=== PATIENT | male | born 1935 | race Caucasian/White ===

== ENCOUNTER 2021-09-02 20:30 | Inpatient (IN) | payer OTHER ==
[2021-09-02 20:47] VITALS: BMI 30.2
[2021-09-02 22:22] LABS: BASO % 0.5 % (0-2.0); HEMATOCRIT 41.5 % (35.4-49); HEMOGLOBIN 13.7 GM/dL (11.7-16.9); LYMPH % 1.7 % (8-40); MCH 30.5 pg (25.7-33.7); MEAN CELL VOLUME 92.4 fl (80-96); MEAN PLT VOLUME 9.4 fl (7.5-11.1); MONO % 1.2 % (3.8-10.2); NEUT % 96.6 % (42.8-82.8); PLATELET COUNT 276 10^3/uL (134-434); RBC 4.49 M/mm3 (4.00-5.60); RDW 14.1 % (11.9-15.9); WHITE BLOOD COUNT 19.3 K/mm3 (4.0-10.0)
[2021-09-02 22:25] LABS: LACTIC ACID 3.8 mmol/L (0.4-2.0)
[2021-09-02 22:30] LABS: INR 1.09 (0.83-1.09); PROTHROMBIN TIME (PATIENT) 12.6 SEC (9.7-13.0)
[2021-09-02 22:33] LABS: ACTIVATED PTT 28.4 SECONDS (25.2-36.5)
[2021-09-02 22:44] LABS: CHLORIDE 96 mmol/L (98-107); SODIUM 137 mmol/L (136-145)
[2021-09-02 22:46] LABS: ALBUMIN 3.4 g/dl (3.4-5.0); BLOOD UREA NITROGEN 30.9 mg/dL (7-18); CO2 26 mmol/L (21-32); GLUCOSE,RANDOM 390 mg/dL (74-106)
[2021-09-02 22:49] LABS: CREATININE 2.2 mg/dL (0.55-1.3); SGOT/AST 21 U/L (15-37)
[2021-09-02] MEDS ORDERED: SODIUM CHLORIDE 1,000 ML IV STA (22:49)
[2021-09-02 22:52] LABS: ALK PHOS 70 U/L (45-117)
[2021-09-02 22:54] LABS: N-TERMINAL BNP 419.2 pg/ml (5-450)
[2021-09-02 23:00] LABS: ANION GAP 15 MMOL/L (8-16); SGPT/ALT 20 U/L (13-61)
[2021-09-02 23:04] LABS: ANISOCYTOSIS 1+; MACROCYTOSIS 0
[2021-09-02 23:08] LABS: PLATELET ESTIMATE ADEQUATE
[2021-09-02] MEDS ORDERED: POTASSIUM CHLORIDE ORAL LIQUID 20 MEQ/15 ML PO ONE (23:24)
[2021-09-02] MEDS ORDERED: KCL 10 MEQ IVPB 10 MEQ/100 ML INFUS.BAG IVPB SCH (23:30)
[2021-09-02] MEDS ORDERED: POTASSIUM CHLORIDE ORAL LIQUID 20 MEQ/15 ML ONE (23:40)
[2021-09-02] MEDS ORDERED: KCL 10 MEQ IVPB 10 MEQ/100 ML INFUS.BAG IVPB ONE (23:41)
[2021-09-03 04:20] LABS: LACTIC ACID 3.6 mmol/L (0.4-2.0)
[2021-09-03] MEDS ORDERED: CEFEPIME HCL/D5W 1 GM/50 ML BAG IVPB ONE (04:37)
[2021-09-03] MEDS ORDERED: VANCOMYCIN 1 GM in D5W (PRE-DOCKED) 1,000 MG/250 ML IVPB ONE (04:37)
[2021-09-03] MEDS ORDERED: SODIUM CHLORIDE 2,790 ML IV ONE (04:38)
[2021-09-03] MEDS ORDERED: CEFEPIME 1 GM/100 ML BAG IVPB ONE (04:48)
[2021-09-03] MEDS ORDERED: VANCOMYCIN 1 GRAM (PRE-DOCKED) 1,000 MG/250 ML BAG IVPB ONE (04:48)
[2021-09-03 06:06] LABS: EPI CELLS 12 /uL (0-25.1); HYALINE CASTS 5 /uL (0-3.1); PH,URINE 5.5 (5.0-8.0); URINE APPEARANCE CLOUDY; URINE BACTERIA >9,000 /uL (0-1359); URINE BILIRUBIN NEGATIVE (NEGATIVE); URINE COLOR YELLOW; URINE GLUCOSE (UA) 3+ (NEGATIVE); URINE KETONE TRACE (NEGATIVE); URINE LEUK ESTERASE 2+ (NEGATIVE); URINE NITRITE NEGATIVE (NEGATIVE); URINE PROTEIN TRACE (NEGATIVE); URINE RBC 241 /uL (0-23.9); URINE UROBILINOGEN 0.2 mg/dL (0.2-1.0); URINE WBC 495 /uL (0-25.8)
[2021-09-03 07:13] LABS: HEMOGLOBIN 12.2 GM/dL (11.7-16.9); MCH 30.7 pg (25.7-33.7); MEAN CELL VOLUME 92.8 fl (80-96); PLATELET COUNT 244 10^3/uL (134-434); RBC 3.99 M/mm3 (4.00-5.60); RDW 14.3 % (11.9-15.9); WHITE BLOOD COUNT 14.9 K/mm3 (4.0-10.0)
[2021-09-03 07:41] LABS: ALBUMIN 3.2 g/dl (3.4-5.0); CALCIUM 8.2 mg/dL (8.5-10.1)
[2021-09-03 07:42] LABS: BLOOD UREA NITROGEN 30.7 mg/dL (7-18); MAGNESIUM 1.9 mg/dL (1.8-2.4)
[2021-09-03 07:46] LABS: BILIRUBIN,TOTAL 0.8 mg/dL (0.2-1); TOT PROT 6.6 g/dl (6.4-8.2)
[2021-09-03 07:53] LABS: LACTIC ACID 7.1 mmol/L (0.4-2.0)
[2021-09-03] MEDS ORDERED: LEVOTHYROXINE NA 50 MCG TABLET (FP) ONE (08:24)
[2021-09-03] MEDS: SODIUM CHLORIDE 1,000 ML with POTASSIUM CHLORIDE 20 MEQ IV SCH (08:34)
[2021-09-03] MEDS: INSULIN SLIDING SCALE (NOVOLOG) 1 VIAL SQ SCH ×4 (08:34→21:23)
[2021-09-03 08:55] LABS: ANISOCYTOSIS 0; HELMET CELLS 0; HOWELL-JOLLY BODIES 0; MACROCYTOSIS 0; OVALOCYTE 0; ROULEAU 0; SICKELED CELLS 0; TARGET CELLS 0; TEAR DROP CELLS 0; TOXIC GRANULATION 0
[2021-09-03] MEDS ORDERED: LEVOTHYROXINE NA 50 MCG TABLET (FP) PO SCH (10:00)
[2021-09-03] MEDS ORDERED: HEPARIN NA (PORCINE) 5,000 UNITS/ML 1ML VIAL ONE (11:48)
[2021-09-03] MEDS: HEPARIN NA (PORCINE) 5,000 UNITS/ML 1ML VIAL SQ SCH ×2 (11:53→21:23)
[2021-09-03] MEDS: LORazepam 2 MG/ML SDV VIAL IM PRN ×2 (16:07→22:50)
[2021-09-03 17:02] LABS: LACTIC ACID 2.4 mmol/L (0.4-2.0)
[2021-09-03] MEDS ORDERED: CEFEPIME HCL 1 GM VIAL (RESTRICTED TO ID) ONE (17:26)
[2021-09-03] MEDS ORDERED: DEXTROSE 5%-WATER 100 ML IVPB ONE (17:26)
[2021-09-03] MEDS: CEFEPIME 1 GM in DEXTROSE 5%-WATER 1 GM/100 ML BAG IVPB SCH (17:50)
[2021-09-04] MEDS: SODIUM CHLORIDE 1,000 ML with POTASSIUM CHLORIDE 20 MEQ IV SCH (02:00)
[2021-09-04] MEDS: CEFEPIME 1 GM in DEXTROSE 5%-WATER 1 GM/100 ML BAG IVPB SCH ×2 (05:34→17:50)
[2021-09-04] MEDS: INSULIN SLIDING SCALE (NOVOLOG) 1 VIAL SQ SCH ×3 (06:43→17:50)
[2021-09-04] MEDS: LEVOTHYROXINE NA 50 MCG TABLET (FP) PO SCH (06:43)
[2021-09-04] MEDS: HEPARIN NA (PORCINE) 5,000 UNITS/ML 1ML VIAL SQ SCH ×2 (09:31→21:28)
[2021-09-04] MEDS ORDERED: CEFEPIME HCL 1 GM VIAL (RESTRICTED TO ID) ONE (16:49)
[2021-09-04] MEDS ORDERED: DEXTROSE 5%-WATER 100 ML IVPB ONE (16:50)
[2021-09-04] MEDS ORDERED: LORazepam 2 MG/ML SDV VIAL IVPUSH ONE (21:15)
[2021-09-05] MEDS: INSULIN SLIDING SCALE (NOVOLOG) 1 VIAL SQ SCH ×5 (02:50→22:58)
[2021-09-05] MEDS: LORazepam 2 MG/ML SDV VIAL IM PRN ×2 (03:00→22:57)
[2021-09-05] MEDS ORDERED: DEXTROSE 5%-WATER 100 ML IVPB ONE ×2 (03:11→17:15)
[2021-09-05] MEDS ORDERED: CEFEPIME HCL 1 GM VIAL (RESTRICTED TO ID) ONE ×2 (03:11→17:15)
[2021-09-05] MEDS: CEFEPIME 1 GM in DEXTROSE 5%-WATER 1 GM/100 ML BAG IVPB SCH ×2 (07:06→17:33)
[2021-09-05] MEDS: LEVOTHYROXINE NA 50 MCG TABLET (FP) PO SCH (09:30)
[2021-09-05] MEDS: HEPARIN NA (PORCINE) 5,000 UNITS/ML 1ML VIAL SQ SCH ×2 (09:30→22:59)
[2021-09-05] MEDS: SODIUM CHLORIDE 1,000 ML with POTASSIUM CHLORIDE 20 MEQ IV SCH ×2 (09:30→11:00)
[2021-09-05 12:23] LABS: BASO % 0.7 % (0-2.0); EOS % 3.2 % (0-4.5); HEMATOCRIT 36.8 % (35.4-49); HEMOGLOBIN 12.2 GM/dL (11.7-16.9); MCH 30.3 pg (25.7-33.7); MEAN CELL VOLUME 91.8 fl (80-96); MEAN PLT VOLUME 8.5 fl (7.5-11.1); MONO % 7.7 % (3.8-10.2); NEUT % 69.4 % (42.8-82.8); PLATELET COUNT 215 10^3/uL (134-434); RBC 4.01 M/mm3 (4.00-5.60); RDW 14.5 % (11.9-15.9); WHITE BLOOD COUNT 5.9 K/mm3 (4.0-10.0)
[2021-09-05 12:49] LABS: CALCIUM 8.1 mg/dL (8.5-10.1)
[2021-09-05 12:50] LABS: ALBUMIN 2.5 g/dl (3.4-5.0)
[2021-09-05 12:53] LABS: CREATININE 1.1 mg/dL (0.55-1.3)
[2021-09-05 12:54] LABS: BILIRUBIN,TOTAL 0.6 mg/dL (0.2-1); TOT PROT 5.8 g/dl (6.4-8.2)
[2021-09-05] MEDS: POTASSIUM CHLORIDE 10 MEQ in SODIUM CHLORIDE 0.45% 1,000 ML IVPB SCH (16:32)
[2021-09-05] MEDS: MEMANTINE HCL 10 MG TABLET (FP) PO SCH (22:58)
[2021-09-06] MEDS ORDERED: CEFEPIME HCL 1 GM VIAL (RESTRICTED TO ID) ONE (03:18)
[2021-09-06] MEDS ORDERED: DEXTROSE 5%-WATER 100 ML IVPB ONE (03:18)
[2021-09-06] MEDS: CEFEPIME 1 GM in DEXTROSE 5%-WATER 1 GM/100 ML BAG IVPB SCH (06:36)
[2021-09-06] MEDS: INSULIN SLIDING SCALE (NOVOLOG) 1 VIAL SQ SCH ×4 (06:39→23:30)
[2021-09-06] MEDS: LEVOTHYROXINE NA 50 MCG TABLET (FP) PO SCH (06:40)
[2021-09-06] MEDS: MEMANTINE HCL 10 MG TABLET (FP) PO SCH ×2 (10:56→23:15)
[2021-09-06] MEDS: HEPARIN NA (PORCINE) 5,000 UNITS/ML 1ML VIAL SQ SCH ×2 (10:56→23:15)
[2021-09-06] MEDS: POTASSIUM CHLORIDE 10 MEQ in SODIUM CHLORIDE 0.45% 1,000 ML IVPB SCH (11:48)
[2021-09-06] MEDS: LISINOPRIL 5 MG TABLET PO SCH (16:23)
[2021-09-06] MEDS: CEPHALEXIN MONOHYDRATE 500 MG CAPSULE (UD) PO SCH ×2 (16:23→23:15)
[2021-09-06] MEDS: LORazepam 2 MG/ML SDV VIAL IM PRN ×2 (16:24→23:16)
[2021-09-07] MEDS: CEPHALEXIN MONOHYDRATE 500 MG CAPSULE (UD) PO SCH ×3 (05:53→22:48)
[2021-09-07] MEDS: LEVOTHYROXINE NA 50 MCG TABLET (FP) PO SCH (06:01)
[2021-09-07] MEDS: INSULIN SLIDING SCALE (NOVOLOG) 1 VIAL SQ SCH ×4 (06:01→22:49)
[2021-09-07] MEDS ORDERED: INSULIN (NOVOLOG) ASPART 100 UNITS/ML 10ML VIAL ONE ×2 (08:01→11:15)
[2021-09-07 08:37] LABS: BASO % 0.8 % (0-2.0); EOS % 3.6 % (0-4.5); HEMATOCRIT 33.9 % (35.4-49); HEMOGLOBIN 11.5 GM/dL (11.7-16.9); LYMPH % 24.8 % (8-40); MCH 30.9 pg (25.7-33.7); MCHC 33.9 g/dl (32.0-35.9); MEAN CELL VOLUME 91.2 fl (80-96); MEAN PLT VOLUME 8.4 fl (7.5-11.1); MONO % 7.9 % (3.8-10.2); NEUT % 62.9 % (42.8-82.8); PLATELET COUNT 237 10^3/uL (134-434); RBC 3.71 M/mm3 (4.00-5.60); WHITE BLOOD COUNT 6.1 K/mm3 (4.0-10.0)
[2021-09-07] MEDS: MEMANTINE HCL 10 MG TABLET (FP) PO SCH ×2 (10:02→22:48)
[2021-09-07] MEDS: LISINOPRIL 5 MG TABLET PO SCH (10:02)
[2021-09-07 10:05] LABS: ALBUMIN 2.4 g/dl (3.4-5.0); BLOOD UREA NITROGEN 14.7 mg/dL (7-18); CALCIUM 7.9 mg/dL (8.5-10.1)
[2021-09-07] MEDS: HEPARIN NA (PORCINE) 5,000 UNITS/ML 1ML VIAL SQ SCH ×2 (10:06→22:48)
[2021-09-07 10:10] LABS: BILIRUBIN,TOTAL 0.6 mg/dL (0.2-1); TOT PROT 5.6 g/dl (6.4-8.2)
[2021-09-07] MEDS: LORazepam 2 MG/ML SDV VIAL IM PRN (11:30)
[2021-09-07] MEDS ORDERED: POTASSIUM CHLORIDE TABS 10 MEQ TABLET.ER (FP) PO ONE (11:30)
[2021-09-08] MEDS: INSULIN SLIDING SCALE (NOVOLOG) 1 VIAL SQ SCH ×4 (07:02→22:00)
[2021-09-08] MEDS: CEPHALEXIN MONOHYDRATE 500 MG CAPSULE (UD) PO SCH ×3 (07:02→21:50)
[2021-09-08] MEDS: LEVOTHYROXINE NA 50 MCG TABLET (FP) PO SCH (07:02)
[2021-09-08] MEDS: LISINOPRIL 5 MG TABLET PO SCH ×3 (10:21→15:20)
[2021-09-08] MEDS: MEMANTINE HCL 10 MG TABLET (FP) PO SCH ×4 (10:21→21:50)
[2021-09-08] MEDS: HEPARIN NA (PORCINE) 5,000 UNITS/ML 1ML VIAL SQ SCH ×2 (10:22→21:50)
[2021-09-09] MEDS: LEVOTHYROXINE NA 50 MCG TABLET (FP) PO SCH (06:07)
[2021-09-09] MEDS: CEPHALEXIN MONOHYDRATE 500 MG CAPSULE (UD) PO SCH ×3 (06:07→23:04)
[2021-09-09] MEDS: INSULIN SLIDING SCALE (NOVOLOG) 1 VIAL SQ SCH ×5 (06:14→23:23)
[2021-09-09] MEDS: LORazepam 2 MG/ML SDV VIAL IM PRN ×2 (06:19→13:04)
[2021-09-09 09:21] LABS: CALCIUM 8.3 mg/dL (8.5-10.1)
[2021-09-09 09:22] LABS: ALBUMIN 2.5 g/dl (3.4-5.0); BLOOD UREA NITROGEN 17.1 mg/dL (7-18); MAGNESIUM 1.9 mg/dL (1.8-2.4)
[2021-09-09 09:25] LABS: BILIRUBIN,TOTAL 0.8 mg/dL (0.2-1); CREATININE 1.2 mg/dL (0.55-1.3)
[2021-09-09 09:27] LABS: TOT PROT 6.1 g/dl (6.4-8.2)
[2021-09-09] MEDS: LISINOPRIL 5 MG TABLET PO SCH (10:21)
[2021-09-09] MEDS: MEMANTINE HCL 10 MG TABLET (FP) PO SCH ×2 (10:21→23:04)
[2021-09-09] MEDS: HEPARIN NA (PORCINE) 5,000 UNITS/ML 1ML VIAL SQ SCH ×2 (10:22→23:04)
[2021-09-10] MEDS: LEVOTHYROXINE NA 50 MCG TABLET (FP) PO SCH (06:28)
[2021-09-10] MEDS: CEPHALEXIN MONOHYDRATE 500 MG CAPSULE (UD) PO SCH ×3 (06:28→21:33)
[2021-09-10] MEDS: INSULIN SLIDING SCALE (NOVOLOG) 1 VIAL SQ SCH ×4 (06:29→21:45)
[2021-09-10] MEDS: LISINOPRIL 5 MG TABLET PO SCH (09:54)
[2021-09-10] MEDS: MEMANTINE HCL 10 MG TABLET (FP) PO SCH ×2 (09:54→21:33)
[2021-09-10] MEDS: HEPARIN NA (PORCINE) 5,000 UNITS/ML 1ML VIAL SQ SCH ×2 (09:55→21:33)
[2021-09-10] MEDS: MIRTAZAPINE 15 MG TABLET (FP) PO SCH (21:34)
[2021-09-11] MEDS: INSULIN SLIDING SCALE (NOVOLOG) 1 VIAL SQ SCH ×4 (06:26→22:51)
[2021-09-11] MEDS: CEPHALEXIN MONOHYDRATE 500 MG CAPSULE (UD) PO SCH ×3 (06:26→22:42)
[2021-09-11] MEDS: LEVOTHYROXINE NA 50 MCG TABLET (FP) PO SCH (06:26)
[2021-09-11] MEDS: LISINOPRIL 5 MG TABLET PO SCH (09:55)
[2021-09-11] MEDS: MEMANTINE HCL 10 MG TABLET (FP) PO SCH ×2 (09:56→22:43)
[2021-09-11] MEDS: HEPARIN NA (PORCINE) 5,000 UNITS/ML 1ML VIAL SQ SCH ×2 (09:56→22:42)
[2021-09-11] MEDS: LORazepam 2 MG/ML SDV VIAL IM PRN (22:36)
[2021-09-11] MEDS: MIRTAZAPINE 15 MG TABLET (FP) PO SCH (22:42)
[2021-09-12] MEDS: LEVOTHYROXINE NA 50 MCG TABLET (FP) PO SCH (06:19)
[2021-09-12] MEDS: INSULIN SLIDING SCALE (NOVOLOG) 1 VIAL SQ SCH ×4 (06:19→23:09)
[2021-09-12] MEDS: CEPHALEXIN MONOHYDRATE 500 MG CAPSULE (UD) PO SCH ×3 (06:19→23:05)
[2021-09-12] MEDS: HEPARIN NA (PORCINE) 5,000 UNITS/ML 1ML VIAL SQ SCH ×2 (09:06→23:08)
[2021-09-12] MEDS: MEMANTINE HCL 10 MG TABLET (FP) PO SCH ×2 (09:07→23:09)
[2021-09-12] MEDS: LISINOPRIL 5 MG TABLET PO SCH (09:08)
[2021-09-12 10:24] LABS: CALCIUM 8.7 mg/dL (8.5-10.1)
[2021-09-12 10:25] LABS: ALBUMIN 2.9 g/dl (3.4-5.0); BLOOD UREA NITROGEN 17.1 mg/dL (7-18)
[2021-09-12 10:29] LABS: BILIRUBIN,TOTAL 0.9 mg/dL (0.2-1); TOT PROT 6.8 g/dl (6.4-8.2)
[2021-09-12] MEDS ORDERED: ACETAMINOPHEN 325 MG TABLET (FP) PO PRN (14:44)
[2021-09-12] MEDS: MIRTAZAPINE 15 MG TABLET (FP) PO SCH (23:05)
[2021-09-13] MEDS: CEPHALEXIN MONOHYDRATE 500 MG CAPSULE (UD) PO SCH (06:39)
[2021-09-13] MEDS: INSULIN SLIDING SCALE (NOVOLOG) 1 VIAL SQ SCH ×4 (06:39→23:16)
[2021-09-13] MEDS: LEVOTHYROXINE NA 50 MCG TABLET (FP) PO SCH (06:39)
[2021-09-13 08:55] LABS: BASO % 1.1 % (0-2.0); EOS % 2.6 % (0-4.5); HEMATOCRIT 36.5 % (35.4-49); HEMOGLOBIN 12.1 GM/dL (11.7-16.9); MCH 30.5 pg (25.7-33.7); MCHC 33.2 g/dl (32.0-35.9); MONO % 5.8 % (3.8-10.2); NEUT % 64.5 % (42.8-82.8); PLATELET COUNT 314 10^3/uL (134-434); RBC 3.97 M/mm3 (4.00-5.60); RDW 14.5 % (11.9-15.9); WHITE BLOOD COUNT 7.1 K/mm3 (4.0-10.0)
[2021-09-13] MEDS: HEPARIN NA (PORCINE) 5,000 UNITS/ML 1ML VIAL SQ SCH ×2 (09:07→23:15)
[2021-09-13] MEDS: MEMANTINE HCL 10 MG TABLET (FP) PO SCH ×2 (09:08→23:15)
[2021-09-13] MEDS: LISINOPRIL 5 MG TABLET PO SCH (09:08)
[2021-09-13] MEDS: MIRTAZAPINE 15 MG TABLET (FP) PO SCH (23:15)
[2021-09-14] MEDS: INSULIN SLIDING SCALE (NOVOLOG) 1 VIAL SQ SCH ×4 (06:26→22:31)
[2021-09-14] MEDS: LEVOTHYROXINE NA 50 MCG TABLET (FP) PO SCH (06:34)
[2021-09-14] MEDS: MEMANTINE HCL 10 MG TABLET (FP) PO SCH ×2 (09:00→22:30)
[2021-09-14] MEDS: HEPARIN NA (PORCINE) 5,000 UNITS/ML 1ML VIAL SQ SCH ×2 (09:00→22:30)
[2021-09-14] MEDS: LISINOPRIL 5 MG TABLET PO SCH (09:00)
[2021-09-14] MEDS ORDERED: INSULIN (NOVOLOG) ASPART 100 UNITS/ML 10ML VIAL ONE (11:43)
[2021-09-14] MEDS: LORazepam 2 MG/ML SDV VIAL IM PRN ×2 (16:26→22:36)
[2021-09-14] MEDS: MIRTAZAPINE 15 MG TABLET (FP) PO SCH (22:30)
[2021-09-15] MEDS: LEVOTHYROXINE NA 50 MCG TABLET (FP) PO SCH (06:32)
[2021-09-15] MEDS: INSULIN SLIDING SCALE (NOVOLOG) 1 VIAL SQ SCH ×3 (06:33→17:03)
[2021-09-15] MEDS: MEMANTINE HCL 10 MG TABLET (FP) PO SCH (09:14)
[2021-09-15] MEDS: LISINOPRIL 5 MG TABLET PO SCH (09:14)
[2021-09-15] MEDS: HEPARIN NA (PORCINE) 5,000 UNITS/ML 1ML VIAL SQ SCH (09:14)
[2021-09-15 15:46] VITALS: BP 145/69; PULSE 82; TEMP 97.5
== END 2021-09-15 19:45 | DRG 682 ==
LOC: SUPCPDRO 20:30 → JER 20:30 → JERBED 20:55 → J4W 09-03 12:57 → J7W 09-06 17:59
PROVIDERS: ADMIT Specialist; ATTEND Specialist
DX: N17.9 Acute kidney failure, unspecified (principal); G93.41 Metabolic encephalopathy; N39.0 Urinary tract infection, site not specified; E87.2 Acidosis; E11.9 Type 2 diabetes mellitus without complications; E87.6 Hypokalemia; E03.9 Hypothyroidism, unspecified; E86.0 Dehydration; F03.90 Unspecified dementia, unspecified severity, without behavioral disturbance, psychotic disturbance, mood disturbance, and anxiety; B96.20 Unspecified Escherichia coli [E. coli] as the cause of diseases classified elsewhere; I25.119 Atherosclerotic heart disease of native coronary artery with unspecified angina pectoris
CPT/HCPCS: 36415; 70450-TC; 71250-TC; 72125-TC; 74176-TC; 80053; 81003; 82607; 82962; 83605; 83735; 83880; 84132; 84443; 84484; 85025; 85610; 85730; 87040; 87086; 87186; 93005; 93010; 97116-GP; 97162-GP; 99285-25; C9803-CS; J1644; U0003; U0005

== ENCOUNTER 2022-05-29 13:13 | Observation (INO) | payer OTHER ==
[2022-05-29] MEDS ORDERED: ACETAMINOPHEN 1000 MG/100 ML BAG IVPB ONE (15:29)
[2022-05-29] MEDS ORDERED: ACETAMINOPHEN INJECTION 100 ML IVPB ONE (15:32)
[2022-05-29 15:53] LABS: EOS % 3.4 % (0-4.5); HEMATOCRIT 42.3 % (35.4-49); HEMOGLOBIN 14.5 GM/dL (11.7-16.9); LYMPH % 18.7 % (8-40); MCHC 34.2 g/dl (32.0-35.9); MEAN CELL VOLUME 93.6 fl (80-96); MEAN PLT VOLUME 8.7 fl (7.5-11.1); MONO % 7.1 % (3.8-10.2); NEUT % 69.8 % (42.8-82.8); PLATELET COUNT 256 10^3/uL (134-434); RBC 4.52 M/mm3 (4.00-5.60); RDW 13.6 % (11.9-15.9); WHITE BLOOD COUNT 8.4 K/mm3 (4.0-10.0)
[2022-05-29 15:55] LABS: PH,URINE 6.5 (5.0-8.0); URINE APPEARANCE CLEAR; URINE BILIRUBIN NEGATIVE (NEGATIVE); URINE COLOR YELLOW; URINE GLUCOSE (UA) NEGATIVE (NEGATIVE); URINE KETONE NEGATIVE (NEGATIVE); URINE LEUK ESTERASE NEGATIVE (NEGATIVE); URINE NITRITE NEGATIVE (NEGATIVE); URINE PROTEIN NEGATIVE (NEGATIVE); URINE UROBILINOGEN 0.2 mg/dL (0.2-1.0)
[2022-05-29 16:45] LABS: CALCIUM 8.3 mg/dL (8.5-10.1)
[2022-05-29 16:46] LABS: ALBUMIN 3.4 g/dl (3.4-5.0); BLOOD UREA NITROGEN 31.8 mg/dL (7-18)
[2022-05-29 16:48] LABS: CREATININE 1.3 mg/dL (0.55-1.3)
[2022-05-29 16:50] LABS: BILIRUBIN,TOTAL 0.4 mg/dL (0.2-1)
[2022-05-29 17:13] LABS: TOT PROT 7.1 g/dl (6.4-8.2)
[2022-05-29] MEDS: ENOXAPARIN NA (PORCINE) 30 MG/0.3 ML DISP.SYRIN SQ SCH (21:20)
[2022-05-29] MEDS: SODIUM CHLORIDE 1,000 ML IV SCH (21:25)
[2022-05-29] MEDS ORDERED: ENOXAPARIN NA (PORCINE) 40 MG/0.4 ML DISP.SYRIN SQ SCH (22:00)
[2022-05-29] MEDS ORDERED: MIRTAZAPINE 15 MG TABLET (FP) ONE (22:46)
[2022-05-29] MEDS: MEMANTINE HCL 10 MG TABLET (FP) PO SCH (23:05)
[2022-05-29] MEDS: MIRTAZAPINE 15 MG TABLET (FP) PO SCH (23:05)
[2022-05-30] MEDS: LEVOTHYROXINE NA 50 MCG TABLET (FP) PO SCH (06:39)
[2022-05-30 08:33] LABS: HEMATOCRIT 44.6 % (35.4-49); HEMOGLOBIN 14.6 GM/dL (11.7-16.9); MCH 30.9 pg (25.7-33.7); MCHC 32.6 g/dl (32.0-35.9); MEAN CELL VOLUME 94.7 fl (80-96); PLATELET COUNT 285 10^3/uL (134-434); RBC 4.71 M/mm3 (4.00-5.60); RDW 13.9 % (11.9-15.9); WHITE BLOOD COUNT 8.8 K/mm3 (4.0-10.0)
[2022-05-30 08:45] LABS: BLOOD UREA NITROGEN 29.2 mg/dL (7-18); CALCIUM 8.8 mg/dL (8.5-10.1); MAGNESIUM 2.2 mg/dL (1.8-2.4)
[2022-05-30 08:48] LABS: CREATININE 1.4 mg/dL (0.55-1.3)
[2022-05-30] MEDS: ENOXAPARIN NA (PORCINE) 30 MG/0.3 ML DISP.SYRIN SQ SCH (10:24)
[2022-05-30] MEDS: MEMANTINE HCL 10 MG TABLET (FP) PO SCH ×2 (10:24→21:36)
[2022-05-30] MEDS: LISINOPRIL 5 MG TABLET PO SCH (10:24)
[2022-05-30] MEDS: SODIUM CHLORIDE 1,000 ML IV SCH (21:35)
[2022-05-30] MEDS: MIRTAZAPINE 15 MG TABLET (FP) PO SCH (21:36)
[2022-05-31] MEDS: LEVOTHYROXINE NA 50 MCG TABLET (FP) PO SCH (06:10)
[2022-05-31 08:15] LABS: EOS % 4.2 % (0-4.5); HEMATOCRIT 38.7 % (35.4-49); LYMPH % 32.8 % (8-40); MCH 31.2 pg (25.7-33.7); MCHC 33.5 g/dl (32.0-35.9); MEAN CELL VOLUME 93.1 fl (80-96); MEAN PLT VOLUME 8.7 fl (7.5-11.1); MONO % 8.1 % (3.8-10.2); NEUT % 53.9 % (42.8-82.8); PLATELET COUNT 217 10^3/uL (134-434); RBC 4.16 M/mm3 (4.00-5.60); RDW 13.6 % (11.9-15.9)
[2022-05-31 08:22] LABS: CALCIUM 7.7 mg/dL (8.5-10.1)
[2022-05-31 08:23] LABS: BLOOD UREA NITROGEN 26.6 mg/dL (7-18)
[2022-05-31 08:26] LABS: CREATININE 1.2 mg/dL (0.55-1.3)
[2022-05-31 08:27] LABS: BILIRUBIN,TOTAL 0.5 mg/dL (0.2-1)
[2022-05-31] MEDS: LISINOPRIL 5 MG TABLET PO SCH (09:39)
[2022-05-31] MEDS: MEMANTINE HCL 10 MG TABLET (FP) PO SCH ×2 (09:40→21:28)
[2022-05-31] MEDS: ENOXAPARIN NA (PORCINE) 30 MG/0.3 ML DISP.SYRIN SQ SCH (09:40)
[2022-05-31] MEDS: SODIUM CHLORIDE 1,000 ML IV SCH (15:48)
[2022-05-31] MEDS: MIRTAZAPINE 15 MG TABLET (FP) PO SCH (21:27)
[2022-06-01] MEDS: SODIUM CHLORIDE 1,000 ML IV SCH ×2 (06:37→23:00)
[2022-06-01] MEDS: LEVOTHYROXINE NA 50 MCG TABLET (FP) PO SCH (06:37)
[2022-06-01] MEDS: MEMANTINE HCL 10 MG TABLET (FP) PO SCH ×2 (12:14→22:55)
[2022-06-01] MEDS: LISINOPRIL 5 MG TABLET PO SCH (12:17)
[2022-06-01] MEDS: ENOXAPARIN NA (PORCINE) 30 MG/0.3 ML DISP.SYRIN SQ SCH (12:19)
[2022-06-01 20:56] VITALS: BMI 27.4
[2022-06-01] MEDS: MIRTAZAPINE 15 MG TABLET (FP) PO SCH (22:55)
[2022-06-02] MEDS: LEVOTHYROXINE NA 50 MCG TABLET (FP) PO SCH (07:07)
[2022-06-02] MEDS: MEMANTINE HCL 10 MG TABLET (FP) PO SCH ×2 (10:40→21:22)
[2022-06-02] MEDS: LISINOPRIL 5 MG TABLET PO SCH (10:40)
[2022-06-02] MEDS: ENOXAPARIN NA (PORCINE) 30 MG/0.3 ML DISP.SYRIN SQ SCH (10:45)
[2022-06-02 14:41] VITALS: RESP 20
[2022-06-02 19:41] VITALS: BP 131/81; PULSE 66; TEMP 98
[2022-06-02] MEDS: MIRTAZAPINE 15 MG TABLET (FP) PO SCH (21:22)
== END 2022-06-02 21:53 ==
LOC: JER 13:13 → JERBED 18:49 → J4W 05-30 00:55
PROVIDERS: ADMIT Internal Medicine; ATTEND Family Medicine
PROC: 3E033NZ Introduction of Analgesics, Hypnotics, Sedatives into Peripheral Vein, Percutaneous Approach (ICD-10-PCS; principal; 2022-05-29)
PROC: 3E023GC Introduction of Other Therapeutic Substance into Muscle, Percutaneous Approach (ICD-10-PCS; 2022-05-29)
PROC: 3E0337Z Introduction of Electrolytic and Water Balance Substance into Peripheral Vein, Percutaneous Approach (ICD-10-PCS; 2022-05-29)
DX: I25.10 Atherosclerotic heart disease of native coronary artery without angina pectoris (principal); I11.9 Hypertensive heart disease without heart failure; F03.90 Unspecified dementia, unspecified severity, without behavioral disturbance, psychotic disturbance, mood disturbance, and anxiety; R60.0 Localized edema; E78.5 Hyperlipidemia, unspecified; E03.9 Hypothyroidism, unspecified; E11.9 Type 2 diabetes mellitus without complications; M19.90 Unspecified osteoarthritis, unspecified site; W18.39XA Other fall on same level, initial encounter; Y93.89 Activity, other specified; Y92.89 Other specified places as the place of occurrence of the external cause; Z88.0 Allergy status to penicillin
CPT/HCPCS: 0241U-QW; 36415; 70450-TC; 71045-TC-FY; 72125-TC; 72170-TC-FY; 80048; 80053; 80061; 81003; 82962; 83735; 84443; 84484; 85025; 85027; 87086; 93005; 93010; 93306-TC; 93880-TC; 93971-TC; 96361; 96372; 96374; 97116-GP; 97162-GP; 99285-25; G0378